=== PATIENT | male | born 1975 | race Caucasian/White ===

== ENCOUNTER 2017-10-19 15:16 | Emergency (ER) | payer OTHER ==
[~2017-10-19] VITALS: Ht 190.5 cm; Wt 90.7 kg
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
[2017-10-19 16:00] VITALS: BP 122/88
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
[2017-10-19 18:06] VITALS: BP 122/88
== END 2017-10-19 18:01 | disposition home or self-care (01) ==
LOC: ER 15:16
DX: S00.93XA Contusion of unspecified part of head, initial encounter (principal); S10.93XA Contusion of unspecified part of neck, initial encounter; V89.2XXA Person injured in unspecified motor-vehicle accident, traffic, initial encounter; Y93.89 Activity, other specified; Y92.410 Unspecified street and highway as the place of occurrence of the external cause; Y99.8 Other external cause status
CPT/HCPCS: 70450; 72125; 99284